=== PATIENT | female | born 1980 | race Caucasian/White ===

== ENCOUNTER 2018-01-01 15:11 | Outpatient (CLI) | payer BC ==
[2014-10-11 10:30] VITALS: BP 118/78
[2018-01-01 16:26] LABS: eGFR (Non-African) > 60
--- NOTE | 2018-01-01 17:41 | Diagnostic Imaging Report ---
ADEBAYO BANKS [facility] [address] [facility] [address] [place], [place]. [address] Report Submission Date: Jan 01, 2018 4:07:15 PM CDT Patient Study Name: KEREN SMALL Date: Jan 01, 2018 3:43:30 PM CDT Modality Type: DX Gender: F Description: CHEST : 80 Institution: [facility] Physician: ADEBAYO BANKS Examination: PA and lateral chest. History: Evaluate lung hewitt. LEFT SHOULDER PAIN AND COUGH X3 DAYS (Hx) Findings: PA and lateral views of the chest demonstrates a normal cardiac and mediastinal silhouette. No focal infiltrate. No blunting of the costophrenic margins. Osseous structures are appropriate for age. Impression: No acute pulmonary process. Electronically signed on Jan 01, 2018 4:07:15 PM CDT by: Quang BOB
[2018-01-01 21:30] LABS: T3-UPTAKE 33.9 % (25.4-41.2)
== END 2018-01-01 15:12 ==
LOC: LAB 15:11
PROVIDERS: ATTEND Nurse Practitioner Family
DX: R00.0 Tachycardia, unspecified (principal); R07.9 Chest pain, unspecified
CPT/HCPCS: 36415; 71046; 80053; 84436; 84479